=== PATIENT | male | born 1950 | race Caucasian/White ===

== ENCOUNTER 2018-10-27 16:30 | Outpatient (RCR) | payer BC | END 2018-10-28 | LOC: PT 16:30 | PROVIDERS: ATTEND Specialist | DX: M17.0 Bilateral primary osteoarthritis of knee (principal) ==

== ENCOUNTER 2018-11-23 15:45 | Outpatient (RCR) | payer BC | END 2018-11-28 | LOC: PT 15:45 | PROVIDERS: ATTEND Specialist | DX: M17.0 Bilateral primary osteoarthritis of knee (principal) | CPT/HCPCS: 97139 ==

== ENCOUNTER → 2018-12-28 | Outpatient (RCR) | payer BC | LOC: PT 12-01 16:39 | PROVIDERS: ATTEND Specialist | DX: M17.0 Bilateral primary osteoarthritis of knee (principal); M24.662 Ankylosis, left knee | CPT/HCPCS: 97139 ==

== ENCOUNTER 2019-01-06 16:41 | Outpatient (RCR) | payer BC | END 2019-01-28 | LOC: PT 16:41 | PROVIDERS: ATTEND Specialist | DX: M17.0 Bilateral primary osteoarthritis of knee (principal) ==